=== PATIENT | male | born 1960 | race African-American/Black ===

== ENCOUNTER 2017-09-14 09:02 | Observation (INO) | payer OTHER ==
[2017-09-14] MEDS ORDERED: NITROGLYCERIN (SL) 0.4 MG TAB SL ×2 (11:30→19:00)
[2017-09-14] MEDS: ASPIRIN 81 MG TAB PO (11:36)
[2017-09-14] MEDS: morphine 4 MG/ML VIAL IV (11:37)
[2017-09-14] MEDS: ONDANSETRON 4 MG INJ IV (11:37)
[2017-09-14] MEDS: NITROGLYCERIN 2% 1 GM OINT PKT TD (11:38)
[2017-09-14 11:48] LABS: ADD MAN DIFF? NO
[2017-09-14 11:50] LABS: BASOPHILS % 0.3 % (0.0-2.0); EOSINOPHILS % 0.2 % (0.0-7.0); HEMATOCRIT 40.7 % (42.0-52.0); HEMOGLOBIN 14.2 g/dl (14.0-18.0); LYMPHOCYTES % 18.8 % (15.0-51.0); MEAN CORPUSCULAR HGB CONC 34.9 g/dl (32.0-37.0); MEAN CORPUSCULAR VOLUME 80.1 fl (82.0-101.0); MEAN PLATELET VOLUME 9.1 fl (7.4-10.4); MONOCYTES % 14.4 % (0.0-11.0); NEUTROPHILS % 65.6 % (39.0-77.0); PLATELET COUNT 267 10^3/UL (140-415); RED BLOOD COUNT 5.08 10^6/ul (4.70-6.10); RED CELL DISTRIBUTION WIDTH 14.7 % (11.5-14.5)
[2017-09-14 11:50] LABS: WHITE BLOOD COUNT 10.5 10^3/ul (4.8-10.8)
[2017-09-14 11:51] LABS: ABNORMAL IP MESSAGE 1; MONOCYTE # 1.5 10^3/ul (0.3-0.9); NEUTROPHIL # 6.9 10^3/ul (1.6-7.5); POSITIVE DIFF @See below
[2017-09-14 12:12] LABS: ANION GAP 16 (8-16); BLOOD UREA NITROGEN 13 mg/dl (7-20); CALCIUM 9.7 mg/dl (8.4-10.2); CARBON DIOXIDE 24 mmol/L (21-31); CHLORIDE 99 mmol/L (97-110); CREATININE 0.88 mg/dl (0.61-1.24); GLUCOSE 130 mg/dl (70-220); POTASSIUM 3.7 mmol/L (3.5-5.1); SODIUM 135 mmol/L (135-144)
[2017-09-14 12:33] LABS: TROPONIN-I < 0.012 ng/ml (0.00-0.12)
[2017-09-14] MEDS ORDERED: ACETAMINOPHEN 325 MG TAB PO (13:00)
[2017-09-14] MEDS ORDERED: ONDANSETRON 4 MG INJ IV ×2 (13:00→15:30)
[2017-09-14 13:09] LABS: ALANINE AMINOTRANSFERASE 60 IU/L (13-69); ALBUMIN 4.8 g/dl (3.3-4.9); ALKALINE PHOSPHATASE 207 IU/L (42-121); ASPARTATE AMINO TRANSFERASE 50 IU/L (15-46); LIPASE 219 U/L (23-300); TOTAL PROTEIN 8.6 g/dl (6.1-8.1)
[2017-09-14] MEDS ORDERED: HYDROCODONE/APAP (5/325) TAB PO (15:30)
[2017-09-14] MEDS: KETOROLAC 30 MG INJ IV (16:02)
[2017-09-14] MEDS: LISINOPRIL 20 MG TAB PO ×2 (16:03→21:02)
[2017-09-14] MEDS: HYDROCHLOROTHIAZIDE 25 MG TAB PO (18:21)
[2017-09-14 18:57] LABS: CREATINE KINASE 437 IU/L (23-200)
[2017-09-14 19:08] LABS: CK INDEX 0.5; TROPONIN-I < 0.012 ng/ml (0.00-0.12)
[2017-09-14] MEDS: FAMOTIDINE 20 MG TAB PO (21:02)
[2017-09-14] MEDS: ATORVASTATIN 20 MG TAB PO (21:02)
[2017-09-14] MEDS: DOCUSATE SODIUM 100 MG CAP PO (21:02)
[2017-09-15 00:03] LABS: CK INDEX 0.5; CK-MB 2.12 ng/ml (0.0-2.4); CREATINE KINASE 408 IU/L (23-200); TROPONIN-I < 0.012 ng/ml (0.00-0.12)
[2017-09-15 05:34] LABS: ADD MAN DIFF? NO
[2017-09-15 05:39] LABS: BASOPHILS % 0.4 % (0.0-2.0); EOSINOPHILS # 0.1 10^3/ul (0.0-0.5); EOSINOPHILS % 0.9 % (0.0-7.0); HEMOGLOBIN 13.9 g/dl (14.0-18.0); LYMPHOCYTES # 1.8 10^3/ul (0.8-2.9); LYMPHOCYTES % 23.4 % (15.0-51.0); MEAN CORPUSCULAR HGB CONC 34.8 g/dl (32.0-37.0); MEAN CORPUSCULAR VOLUME 80.5 fl (82.0-101.0); MEAN PLATELET VOLUME 9.6 fl (7.4-10.4); MONOCYTE # 1.4 10^3/ul (0.3-0.9); MONOCYTES % 18.4 % (0.0-11.0); NEUTROPHIL # 4.3 10^3/ul (1.6-7.5); NEUTROPHILS % 56.5 % (39.0-77.0); PLATELET COUNT 279 10^3/UL (140-415); RED BLOOD COUNT 4.97 10^6/ul (4.70-6.10)
[2017-09-15 05:39] LABS: WHITE BLOOD COUNT 7.6 10^3/ul (4.8-10.8)
[2017-09-15 06:00] LABS: ALANINE AMINOTRANSFERASE 51 IU/L (13-69); ALBUMIN 4.5 g/dl (3.3-4.9); ALBUMIN/GLOBULIN RATIO 1.09; ALKALINE PHOSPHATASE 170 IU/L (42-121); ANION GAP 16 (8-16); ASPARTATE AMINO TRANSFERASE 43 IU/L (15-46); BLOOD UREA NITROGEN 16 mg/dl (7-20); CALCIUM 9.4 mg/dl (8.4-10.2); CARBON DIOXIDE 29 mmol/L (21-31); CHLORIDE 99 mmol/L (97-110); CREATININE 1.07 mg/dl (0.61-1.24); GLUCOSE 136 mg/dl (70-220); LIPASE 228 U/L (23-300); MAGNESIUM 2.1 mg/dl (1.7-2.5); PHOSPHORUS 3.8 mg/dl (2.5-4.9); POTASSIUM 3.8 mmol/L (3.5-5.1); SODIUM 140 mmol/L (135-144); TOTAL PROTEIN 8.6 g/dl (6.1-8.1)
[2017-09-15 08:20] LABS: HEMOGLOBIN A1C 5.7 % (0-5.9)
[2017-09-15] MEDS ORDERED: NON-FORMULARY/PATIENT OWN MED (Lisinopril/Hydrochlorothiazide (Lisinopril-Hctz 20-25 mg Ta PO (09:00)
[2017-09-15] MEDS: ASPIRIN (EC) 81 MG TAB PO (10:28)
[2017-09-15] MEDS: FAMOTIDINE 20 MG TAB PO (10:28)
[2017-09-15] MEDS: DOCUSATE SODIUM 100 MG CAP PO (10:32)
[2017-09-15] MEDS: HYDROCHLOROTHIAZIDE 25 MG TAB PO (10:32)
[2017-09-15] MEDS: AMLODIPINE 10 MG TAB PO (10:33)
[2017-09-15] MEDS: LISINOPRIL 20 MG TAB PO (10:38)
[2017-09-15] MEDS ORDERED: hydrALAzine 20 MG INJ IV (12:00)
[2017-09-15] MEDS: REGADENOSON 0.4 MG/5 ML SYG (12:32)
== END 2017-09-15 15:50 | disposition home or self-care (01) ==
LOC: E/R 09:02 → MS3 15:00
DX: R07.89 Other chest pain (principal); I10 Essential (primary) hypertension; E78.5 Hyperlipidemia, unspecified; F10.10 Alcohol abuse, uncomplicated; Z72.0 Tobacco use; Z82.49 Family history of ischemic heart disease and other diseases of the circulatory system; Z83.3 Family history of diabetes mellitus; Z79.82 Long term (current) use of aspirin
CPT/HCPCS: 36415; 71045; 78452; 80048; 80053; 80076; 82550; 82553; 83036; 83690; 83735; 84100; 84443; 84484; 85025; 93005; 93017; 93306; 96374; 96375; 99285-25